=== PATIENT | male | born 1935 | race Caucasian/White ===

== ENCOUNTER 2017-08-20 12:57 | Inpatient (IN) ==
[2017-08-20 13:24] LABS: URINE MICRO REVIEW NEEDED? NO; URINE SOURCE CATH
[2017-08-20 13:30] LABS: BILIRUBIN URINE NEGATIVE (NEGATIVE); BLOOD URINE MODERATE (NEGATIVE); COLOR YELLOW; GLUCOSE URINE NEGATIVE (NEGATIVE); LEUKOCYTES URINE LARGE (NEGATIVE); NITRITE URINE POSITIVE (NEGATIVE); PROTEIN URINE 30 mg/dL (NEGATIVE); SP GRAVITY URINE 1.012; TURBIDITY URINE HAZY (CLEAR); UROBILINOGEN URINE NORMAL (NORMAL)
[2017-08-20 13:33] LABS: UR EPITHELIAL CELLS <10 /HPF (<10); URINE BACTERIA 4+ /HPF; URINE CULTURE NEEDED? YES; URINE WBC TNTC /HPF (<10)
[2017-08-20] MEDS ORDERED: NS 500 ML IV ONE (14:14)
[2017-08-20 14:16] LABS: MANUAL DIFF NEEDED? NO
[2017-08-20] MEDS ORDERED: KEFZOL 1 GM/D5W 1 GM/50 ML IVPB IV ONE (14:16)
[2017-08-20 14:21] LABS: BASO% 0.2 % (0.0-0.8); EOS# 0.02 X1000 (0.0-0.7); EOS% 0.1 % (0.0-10.0); HEMATOCRIT 37.7 % (42.0-52.0); HEMOGLOBIN 12.6 g/dL (14.0-18.0); IMM GRAN# 0.06 X1000 (0.0-0.04); IMM GRAN% 0.4 % (0.0-0.5); LYMPH# 2.96 X1000 (1.2-3.4); LYMPH% 21.3 % (20.5-51.1); MCH 32.4 PG (27-31); MCHC 33.4 g/dL (33-37); MCV 96.9 FL (81-99); MONO# 0.72 X1000 (0.11-0.59); MONO% 5.2 % (1.7-9.3); MPV 10.2 FL (7.4-10.4); NEUT% 72.8 % (42.2-75.2); PLT 223 X1000 (130-400); RBC 3.89 XMIL (4.7-6.1)
[2017-08-20 14:53] LABS: ALBUMIN 2.7 g/dL (3.5-5.0); CALCIUM 8.7 mg/dL (8.8-10.2); POTASSIUM 3.7 mmol/L (3.5-5.1); TOTAL BILIRUBIN 0.59 mg/dL (0.20-1.00); TOTAL PROTEIN 5.8 g/dL (6.3-8.3)
--- NOTE | 2017-08-20 15:57 | PROVIDER DOCUMENTATION ---
This chart was entered by Linwood Montgomery Scribe, acting as scribe for Colleen Garcia CRNP. HPI-Neurological Disorder - General Chief Complaint: UTI Symptoms Stated Complaint: uti/ams/elevated creatine Time Seen by Provider: 08/20/17 13:17 Source: family, EMS, [facility] records Unable to obtain history due to:: altered Allergies/Adverse Reactions: Patient Allergies Allergy/AdvReac Type Severity Reaction Status Date / Time atorvastatin calcium * Allergy Unknown unkown Verified 08/20/17 13:40 [From Lipitor] Home Medications: Home Medication List Medication Instructions Recorded Confirmed Last Taken Type Memantine HCl [Namenda] 5 mg PO BID 11/02/13 08/20/17 08/20/17 09:00 History Clopidogrel Bisulfate [Plavix] 75 mg PO DAILY 11/16/14 08/20/17 08/20/17 09:00 History Divalproex Sodium 125 mg PO DAILY 07/18/17 08/20/17 08/20/17 09:00 History Donepezil [Aricept] 10 mg PO DAILY 07/18/17 08/20/17 08/20/17 09:00 History Mirtazapine [Remeron] 15 mg PO EVERY OTHER DAY 07/18/17 08/20/17 08/18/17 21:00 History Pravastatin Sodium 10 mg PO DAILY 07/18/17 08/20/17 08/20/17 09:00 History Tamsulosin [Flomax] 0.4 mg PO DAILY 07/18/17 08/20/17 08/20/17 09:00 History Amlodipine Besylate 10 mg PO DAILY 08/20/17 08/20/17 08/20/17 09:00 History Aspirin [Aspir-Low] 81 mg PO DAILY 08/20/17 08/20/17 08/20/17 09:00 History Ca Comb No.1/D3/B-6/FA/B12/Av 1 tab PO DAILY 08/20/17 08/20/17 08/20/17 08:00 History [Vitamin D3-Aloe 1,000 Unit Tab] Docusate Sodium 100 mg PO DAILY 08/20/17 08/20/17 08/20/17 09:00 History Ginkgo Biloba [place] Extract [Ginkgo] 60 mg PO DAILY 08/20/17 08/20/17 08/20/17 09 :00 History Glipizide E.r. [Glucotrol Xl] 2.5 mg PO DAILY 08/20/17 08/20/17 08/20/17 06:00 History Hydrochlorothiazide 25 mg PO DAILY 08/20/17 08/20/17 08/20/17 09:00 History Insulin Regular, Human [Humulin R 1 dose SQ DIRECTED 08/20/17 08/20/17 06:00 History U-500] Levothyroxine [Synthroid] 50 mcg PO DAILY 08/20/17 08/20/17 08/20/17 06:00 History Lmfol Ca/Acetyl/Mb12/Algal Oil 1 tab PO DAILY 08/20/17 08/20/17 08/20/17 09:00 History [Metafolbic Plus Rf [place]] Multivitamin with Folic Acid 1 tab PO DAILY 08/20/17 08/20/17 08/20/17 09:00 History [Thera Tablet] Omeprazole 40 mg PO DAILY 08/20/17 08/20/17 08/20/17 06:00 History Potassium Chloride E.r. [Micro-K] 10 meq PO DAILY 08/20/17 08/20/17 08/20/17 09: 00 History - History of Present Illness-Neuro Nature of Presenting Problem: patient is a 81 yo M that presents to the ER with via EMS with AMS and elevated Creatinine level. patient is from local [facility]. Patient is altered and confused. APPARENTLY WAS DX WITH UTI 1 WEEK AGO, FAMILY STS INCREASINGLY ALTERED SINCE THEN. DENIES PAIN. HX OF DEMENTIA, CVA WITH LT SIDED PARALYSIS. Severity: reports: moderate Timing: reports: still present, getting worse Context: denies: head injury, fever Character of Altered Mental Status: reports: confused, decreased responsiveness Any recent trauma/injury?: reports: none Cognitive Baseline: alert but disoriented (dementia) Associated Symptoms: reports: confusion. denies: short of breath, fever/chills , nausea, seizures, vomiting Similar Symptoms Previously?: No Recently seen or treated by another doctor?: No Review of Systems - Adult - REVIEW OF SYSTEMS - ADULT ROS:: ROS per family Constitutional: reports: no symptoms reported. denies: chills, fever Eyes: reports: no symptoms reported Ears, Nose, Mouth & Throat: reports: no symptoms reported Cardiovascular: reports: no symptoms reported. denies: chest pain, palpitations Respiratory: reports: no symptoms reported. denies: cough, shortness of breath Gastrointestinal: reports: no symptoms reported. denies: abdominal pain, diarrhea, nausea, vomiting Genitourinary: reports: no symptoms reported Musculoskeletal: reports: no symptoms reported. denies: back pain, joint pain, joint swelling Integumentary: reports: no symptoms reported. denies: itching, rash Neurological: reports: other (ams). denies: seizure Psychiatric: reports: no symptoms reported Endocrine: reports: no symptoms reported Hematologic/Lymphatic: reports: no symptoms reported Allergic/Immunologic: reports: no symptoms reported All Other Systems: Reviewed and Negative Past History - Adult - PAST MEDICAL HISTORY-ADULT Review of Records: reports: Old Records Reviewed, Nursing Assessment Review, Medications Reviewed Major Childhood Illnesses: reports: denies history Cardiovascular: reports: cardiac disease, HTN, hyperlipidemia Respiratory: reports: sleep apnea Gastrointestinal: reports: GERD Neurological: reports: CVA, dementia, Parkinson's, TIA Psychiatric: reports: depression - PRIOR SURGERIES/PROCEDURES Surgical/Procedure History: reports: CABG, cardiac stent, orthopedic (extremity) - IMMUNIZATION STATUS Childhood Immunizations: See Nurse Assessment Flu Vaccine: See Nurse Assessment - FAMILY HISTORY Family History: reviewed, not pertinent - SOCIAL HISTORY Smoking: quit greater than 1 year, cigarettes Living Situation: care facility Physical Exam- Neurological - Physical Exam-Neuro Initial Vital Signs Reviewed: Yes General Appearance: no apparent distress, slow to respond Eye Exam: bilateral eye: normal inspection, PERRL HENMT: normocephalic/atraumatic. negative: moist mucous membranes (DRY) Head Injury: no evidence of injury Respiratory: chest non-tender, lungs clear, normal breath sounds, no pleuratic chest pain, no respiratory distress, no accessory muscle use. negative: rhonchi , wheezing Cardiovascular: regular rate, rhythm Abdominal Exam: normal bowel sounds, non tender, soft, no organomegaly, no pulsatile mass. 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) Integumentary: normal color, normal turgor, warm/dry Psych/Mental Status: normal mood/affect, disoriented x 3 (ORIENTED TO SELF ONLY) - Glascow Coma Scale Best Eye Response: (4) open spontaneously Best Verbal Response: (4) confused conversation Best Motor Response: (6) obeys commands Total Glascow Score: 14 Progress - PLAN OF CARE/RESULTS Progress/Plan/Lab Results: Vital Signs - 8 hr 08/20/17 13:06 08/20/17 15:30 Temperature 98.4 F Pulse Rate 73 70 Respiratory Rate 16 18 Blood Pressure 140/71 147/71 O2 Sat by Pulse Oximetry 93 L 96 Laboratory Results - last 24 hr 08/20/17 08/20/17 08/20/17 13:14 14:04 14:04 WBC 13.88 H RBC 3.89 L Hgb 12.6 L Hct 37.7 L MCV 96.9 MCH 32.4 H MCHC 33.4 RDW Std Deviation 13.8 Plt Count 223 MPV 10.2 Immature Gran % (Auto) 0.4 Neut % (Auto) 72.8 Lymph % (Auto) 21.3 [place] % (Auto) 5.2 Eos % (Auto) 0.1 Baso % (Auto) 0.2 Immature Gran # (Auto) 0.06 H Neut # (Auto) 10.09 H Lymph # (Auto) 2.96 [place] # (Auto) 0.72 H Eos # (Auto) 0.02 Baso # (Auto) 0.03 Sodium 146 H Potassium 3.7 Chloride 109 H Carbon Dioxide 27 Anion Gap 10 BUN 69 H Creatinine 2.3 H Estimated GFR/1.73 m2 27 BUN/Creatinine Ratio 30 Glucose 162 H Calculated Osmolality 314 Calcium 8.7 L Total Bilirubin 0.59 AST 34 ALT 116 H Alkaline Phosphatase 215 H Total Protein 5.8 L Albumin 2.7 L Globulin 3.1 Albumin/Globulin Ratio 0.9 Urine Source CATH Urine Color YELLOW Urine Turbidity HAZY Urine pH 6.0 Ur Specific [place] 1.012 Urine Protein 30 A Ur Glucose (Stick) NEGATIVE Ur Ketones (Stick) NEGATIVE Urine Blood MODERATE A Urine Nitrite POSITIVE A Urine Bilirubin NEGATIVE Urobilinogen Dipstick NORMAL Urine Leukocytes LARGE A Urine WBC (Auto) TNTC A Urine RBC (Auto) 10-20 A U Epithel Cells (Auto) <10 Urine Bacteria (Auto) 4+ Orders Category Date Time Status Saline Loc NOW Care 08/20/17 13:[address] HEAD W/O CONTRAST [CT] Stat Exams 08/20/17 15:47 Ordered FLAT/UPRIGHT ABD/1 VIEW CHEST [RAD] Stat Exams 08/20/17 15:47 Ordered BLOOD CULTURE [BLDCUL] Stat Lab 08/20/17 14:29 Received CBC WITH ELECTRONIC DIFF [HEME] Stat Lab 08/20/17 14:04 Completed COMPREHENSIVE METABOLIC PANEL [CHEM] Stat Lab 08/20/17 14:04 Completed UA NIMS W/REFLEX CULT [URINALYSIS] Stat Lab 08/20/17 13:14 Completed URINE CULTURE [RM] Routine Lab 08/20/17 14:34 Received 0.9% Sodium Chloride Inj [Ns] 500 ml Med 08/20/17 14:14 Discontinued IV 999 mls/hr Cefazolin 1 gm/D5w [Kefzol 1 gm/D5w] Med 08/20/17 14:16 Discontinued 1 gm in 50 ml IV NOW DISCUSSED PT LABS, EXAM, AND HX WITH DR. DONNELLY WHO AGREES WITH PLAN FOR ADMISSION. Result Diagrams: 08/20/17 14:04 08/20/17 14:04 - CONSULTS/PCP/HOSPITALIST Notification #1 *Consult/PCP/Hospitalist*: JAROCHO COOPER FOR DR. SAMSON Time Discussed: 15:35 Consult Disposition: Admit Departure - Departure Date of Disposition Decision: 08/20/17 Time of Disposition Decision: 15:35 DIAGNOSIS: Urinary tract infection Qualifiers: Urinary tract infection type: site unspecified Hematuria presence: with hematuria Qualified Code(s): N39.0 - Urinary tract infection, site not specified ; R31.9 - Hematuria, unspecified Acute renal failure Qualifiers: Acute renal failure type: unspecified Qualified Code(s): N17.9 - Acute kidney failure, unspecified Disposition: ADMITTED INPATIENT 09 Certified Medical Emergency: Emergent Condition: Good Referrals and Follow-Ups: Fabián Rene MD [Primary Care Provider] - - Critical Care Note This patient required my direct & personal management of CC.: No Attestation - Physician/ GISELLE Attestation Patient care was provided by Advanced Practice Provider:: Yes Advanced Practice Provider:: Colleen Garcia Advanced Practice Provider documentation review:: The Mid-level provider documentation, treatment plan and medical decision making was reviewed by the physician who agrees with all treatment and medical decision making by the MLP. The physician spent face to face time with patient:: No Advanced Practice Provider documentation review:: Supervising physician onsite and consulted in the evaluation and care of this patient. The physician did not have a face to face encounter with the patient. This chart was documented by the indicated scribe, (Linwood Montgomery, Ac) and accurately reflects the services I performed and decisions made by , Colleen Garcia CRNP, as attested by the provider's signature.
[2017-08-20 16:20] LABS: AMYLASE 38 U/L (20-200); LIPASE 23 U/L (13-60)
--- NOTE | 2017-08-20 16:31 | Diag Imaging Result Doc PS360 ---
EXAM: CT HEAD W/O CONTRAST HISTORY: AMS, HX CVA TECHNIQUE: CT brain without contrast. Dose reduction protocol. COMPARISON: 07/18/2017 FINDINGS: No parenchymal hemorrhage. No epidural or subdural hematoma. No subarachnoid hemorrhage. Old bilateral infarcts in the superior parietal lobes which were not present on the prior exam there is also atrophy with chronic microvascular ischemic changes. Small old right thalamic infarct wasn't present previously. No sinus opacification. No air-fluid levels. IMPRESSION: 1.No hemorrhage 2.Atrophy with chronic microvascular ischemic changes 3.Old bilateral infarcts. Two of these superiorly in the parietal lobes were not present on the prior exam. Electronically signed by Anshul Turcios 08/20/2017 4:28 PM
--- NOTE | 2017-08-20 16:33 | Diag Imaging Result Doc PS360 ---
EXAM: FLAT/UPRIGHT ABD/1 VIEW CHEST HISTORY: ELEVATED WBC, ELEVATED LFTS, ADMISSION TECHNIQUE: Upright sitting with flat and upright abdomen, three views COMPARISON: 07/18/2017 FINDINGS: The lungs are well expanded. Sternal wires are present. No cardiomegaly. No pneumonia. No free air beneath the diaphragm. No bowel obstruction. No organomegaly. There are prominent degenerative spine changes. IMPRESSION: No acute abnormality Electronically signed by Anshul Turcios 08/20/2017 4:30 PM
[2017-08-20] MEDS ORDERED: NS 1,000 ML IV SCH (19:03)
[2017-08-20] MEDS ORDERED: ZOFRAN IV PRN (19:03)
[2017-08-20] MEDS ORDERED: ZOSYN 3.375 GM in NS 50 ML IV SCH (20:00)
--- NOTE | 2017-08-20 20:04 | HISTORY AND PHYSICAL ---
HISTORY OF PRESENT ILLNESS: This is an 81-year-old, who was at rehab at [facility] and for the last week he has been not getting out of bed, not eating, not drinking, and his mental status has changed. He is more confused according to the daughter. As far as I know, they have not changed any medications. There is some concern that his sugars apparently were high and he was given insulin and he has never been known to have diabetes. PAST MEDICAL HISTORY: Complex. Best I can tell: 1. Hypertension. 2. Coronary artery disease. 3. Parkinson disease. 4. Dementia. 5. Gastric ulcers. 6. Gastroesophageal reflux disease. 7. Obstructive sleep apnea. 8. CVA in 2012. PAST SURGICAL HISTORY: 1. Status post left endarterectomy in 2011. 2. Coronary artery disease, bypass graft. 3. Right total knee. 4. Right shoulder surgery. About 5 years ago apparently he had a CVA and following that they noticed a real decline in his cognitive ability and confusion and dementia. Then he had another stroke on the 18 of July and that left his left side I believe paralyzed. They did see a little improvement with rehab, but he was sent here to the hospital and felt like possibly could have a urinary tract infection. SOCIAL HISTORY: He was at rehab, but he is and his and family take good care of him. Occasional social alcohol in the past. Does not smoke. No illicit drugs. Has a daughter and a son also very attentive. ALLERGIES: No known drug allergies. MEDICATIONS: We will review. FAMILY HISTORY: I did not elicit. On past medical history did not see any pertinent family history. REVIEW OF SYSTEMS: Constitutional: He has not eaten or drunk much this last week. Seems to be more lethargic. He does not appear to have any focus of pain. He is just less responsive and seems to be more confused. Respiratory: No sign of increased work of breathing or dyspnea. Cardiovascular: Does not show any sign of chest pain. Has not had issues with arrhythmia that they know of. Gastrointestinal/genitourinary: They feel like his bowels have moved okay, but he really has not eaten much this last week No reports of gross hematuria. As far as I know he is voiding okay. Skin: He has a sacral breakdown and apparently they were told it was worse recently and then it broke open today. PHYSICAL EXAMINATION: VITAL SIGNS: Temperature 98.4 degrees, pulse 70, respirations 18, blood pressure 147/71. HEENT: His pupils are equal. CVP is less than 6 cm. NECK: No distended neck veins. LUNGS: Anterolateral are clear. No sign of shortness of breath. CARDIOVASCULAR: Regular rhythm nd rate without murmur or S3. PMI nondisplaced. ABDOMEN: Soft. SKIN: Warm and dry. HEIGHT: 6 feet 3 inches. LAB: White count 35806, hematocrit 37, platelet count 223,000. Sodium 146, potassium 3.7, chloride 109, BUN 69, creatinine 2.3. AST was 116. AST was 34. Alkaline phosphatase was 215. Amylase is 38. Lipase 23. Looking back at his creatinine, it was 1.0 in June. Urinalysis 4+ bacteria. Large amount of too numerous to count white blood cells. Abdominal x-ray no acute abnormality. Head CT, no hemorrhage. Atrophy with chronic microvascular ischemic changes. Old bilateral infarcts. Two of these superior in the parietal lobes, not present on prior exam. ASSESSMENT AND PLAN: 1. Altered mental status. Difficult. Family feels like it is a change from his baseline. He has underlying dementia. He has had at least 2 documented CVAs. I think his is concerned that he is having more little strokes, she called them TMI's, but I think she meant TIA's, and we are going to treat for a urinary tract infection. He does have too numerous to count white blood cells and 4+ bacteria in a man and I think that is significant. We will give him Rocephin 1 g daily. Give 1 dose now. 2. Urinary tract infection. As above, treat with ceftriaxone. 3. History of cerebrovascular accidents. I am not sure if we probably ought to look at his carotids if that has not been done. I am sure he has had an echocardiogram. He did have carotid Doppler's back in November 2015 and he is status post carotid endarterectomy, I believe. 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 The right side grossly unchanged, still noted to be 0-39%. I do not think we need to repeat that. He had an echocardiogram, I think. Looking back, though, that may be worth documenting his left ventricular function. cc: Tom Glover MD
[2017-08-20] MEDS: 1/2 NS 1,000 ML IV SCH (20:46)
[2017-08-20] MEDS: ROCEPHIN 1 GM in NS 50 ML IV SCH (20:46)
[2017-08-20] MEDS: TYLENOL PO PRN (20:47)
[2017-08-20] MEDS ORDERED: PRILOSEC PO SCH (21:00)
[2017-08-20] MEDS ORDERED: NAMENDA PO SCH (21:00)
[2017-08-20] MEDS: HUMULIN R SUBQ SCH (21:12)
[2017-08-21] MEDS: HUMULIN R SUBQ SCH ×4 (06:15→20:18)
[2017-08-21 06:36] LABS: MANUAL DIFF NEEDED? NO
--- NOTE | 2017-08-21 06:45 | EKG Report ---
Test Performed on : 08/21/2017 05:52:46 AM Test Reason : chest pain Blood Pressure : / mmHG Vent. Rate : 080 BPM Atrial Rate : 080 BPM P-R Int : 176 ms QRS Dur : 080 ms QT Int : 380 ms P-R-T Axes : 073 -27 -08 degrees QTc Int : 438 ms Sinus rhythm. with premature atrial complexes. with aberrant conduction. Low voltage QRS Possible Inferior infarct (cited on or before 27-NOV-2015) Cannot rule out Anterior infarct (cited on or before 18-JUL-2017) Abnormal ECG When compared with ECG of July 18, 2017- No significant change was found Confirmed by Del Oscar MD ([id number]) on 08/23/2017 12:59:43 PM
[2017-08-21 06:56] LABS: INR 1.1; PROTIME 11.6 Seconds (9.2-11.7); PTT 24.8 Seconds (22.0-36.0)
[2017-08-21 07:00] LABS: BASO% 0.2 % (0.0-0.8); EOS# 0.05 X1000 (0.0-0.7); EOS% 0.4 % (0.0-10.0); HEMATOCRIT 39.5 % (42.0-52.0); HEMOGLOBIN 12.9 g/dL (14.0-18.0); IMM GRAN# 0.03 X1000 (0.0-0.04); IMM GRAN% 0.2 % (0.0-0.5); LYMPH# 2.82 X1000 (1.2-3.4); LYMPH% 22.6 % (20.5-51.1); MCH 32.3 PG (27-31); MCHC 32.7 g/dL (33-37); MCV 98.8 FL (81-99); MONO# 0.62 X1000 (0.11-0.59); MPV 10.4 FL (7.4-10.4); NEUT% 71.6 % (42.2-75.2); PLT 243 X1000 (130-400)
[2017-08-21 07:24] LABS: CALCIUM 8.8 mg/dL (8.8-10.2); MAGNESIUM 2.2 mg/dL (1.5-2.7); POTASSIUM 4.1 mmol/L (3.5-5.1); TOTAL BILIRUBIN 0.62 mg/dL (0.20-1.00); TOTAL PROTEIN 5.6 g/dL (6.3-8.3)
[2017-08-21 07:32] LABS: FREE T4 1.24 ng/dL (0.93-1.70)
[2017-08-21] MEDS ORDERED: ARICEPT PO SCH (09:00)
[2017-08-21] MEDS ORDERED: VITAMIN D PO SCH (09:00)
--- NOTE | 2017-08-21 09:27 | PROGRESS NOTE ---
DATE: 08/21/2017 SUBJECTIVE: He had some confusion last night. Nurse reported that it was consistent with ing. This morning, he seems to be more alert and awake. He denies hurting anywhere. His mouth appears dry. Remains afebrile. PHYSICAL EXAMINATION: Vital Signs: Temperature 97.4 degrees, pulse 72, respirations 22, blood pressure 152/68. Lungs: Are clear anterolateral. Cardiovascular Examination: Regular rhythm and rate without murmur or S3. Abdomen: Soft. Skin: Is warm and dry. HEENT: Mucous membranes dry as mentioned. Neck: No distended neck veins. LABORATORY: Review of lab from yesterday, borderline elevation of white count at 12,460. Note that his sodium has gone up to 156, potassium 4.1, chloride 115, BUN 62, creatinine 2.1. ASSESSMENT AND PLAN: 1. Altered mental status, metabolic encephalopathy. He does have underlying urinary tract infection. Continue present antibiotics and continue to give him fluid. 2. Acute on chronic renal injury. Going to continue fluids and watch his creatinine. 3. Polypharmacy. He does have a history of 2 cerebrovascular accidents and underlying dementia but I really think we need to try and trim down some these medications and take him off of things that he does not absolutely have to have or not clear about it benefit. His fluids right now are at 85 mL an hour of normal saline. We will continue that. Did notice that the sodium went up a little bit. cc: Tom Glover MD
[2017-08-21] MEDS: PLAVIX PO SCH (09:38)
[2017-08-21] MEDS: DEPAKOTE SPRINKLE PO SCH (09:38)
[2017-08-21] MEDS: ASPIRIN EC PO SCH (09:38)
[2017-08-21] MEDS: SYNTHROID PO SCH (09:39)
[2017-08-21] MEDS: COLACE PO SCH (09:40)
[2017-08-21] MEDS: FLOMAX PO SCH (09:40)
[2017-08-21] MEDS: THERA M PLUS PO SCH (09:41)
[2017-08-21] MEDS: VITAMIN D PO SCH (09:45)
[2017-08-21] MEDS: 1/2 NS 1,000 ML IV SCH ×2 (10:45→22:48)
[2017-08-21] MEDS: PATIENT'S OWN MED PO SCH ×2 (10:49)
[2017-08-21 11:20] LABS: HEPATITIS PROFILE ACUTE SEE COMMENTS
[2017-08-21] MEDS: TYLENOL PO PRN (20:17)
[2017-08-21] MEDS: ROCEPHIN 1 GM in NS 50 ML IV SCH (20:18)
[2017-08-22] MEDS: TYLENOL PO PRN (04:17)
[2017-08-22] MEDS: HUMULIN R SUBQ SCH ×4 (06:04→20:49)
[2017-08-22] MEDS ORDERED: REMERON PO SCH (09:00)
[2017-08-22] MEDS: FLOMAX PO SCH (09:50)
[2017-08-22] MEDS: COLACE PO SCH (09:50)
[2017-08-22] MEDS: ASPIRIN EC PO SCH (09:50)
[2017-08-22] MEDS: PLAVIX PO SCH (09:50)
[2017-08-22] MEDS: THERA M PLUS PO SCH (09:50)
[2017-08-22] MEDS: SYNTHROID PO SCH (09:50)
[2017-08-22] MEDS: DEPAKOTE SPRINKLE PO SCH (09:50)
[2017-08-22] MEDS: VITAMIN D PO SCH (09:51)
[2017-08-22] MEDS: PATIENT'S OWN MED PO SCH ×2 (09:52→09:53)
--- NOTE | 2017-08-22 09:59 | PROGRESS NOTE ---
DATE: 08/22/2017 SUBJECTIVE: He looks better. His feels like he looks better. He is more alert. He appears comfortable. He responded to questions. He does complain of hurting in his back when I asked if he was hurting. OBJECTIVE: Temperature 97.8 degrees, pulse 74, respirations 16. Lungs are clear in all lung lozada. Cardiovascular: Regular rhythm and rate without murmur or S3. Abdomen is soft. Skin is warm and dry. He has a sacral decubitus which was provided topical care. Urine output was close to 2400. REVIEW OF LABORATORY DATA: From yesterday, hematocrit stable at 39. Sequential blood sugar is 169, 151, 184, 146. ASSESSMENT AND PLAN: 1. Altered mental status. Metabolic encephalopathy. I think it is multifactorial or underlying dementia. He has had 2 recent cerebrovascular accidents. We have cut down on some medications to see if it would help. I did stop his Aricept and his Namenda, a note that is indicated for moderate dementia to keep it from progressing, and the family really cannot tell if that has any benefit. 2. Lhhoy-qu-ymfmtia renal injury. Continue fluids. Seems to be improving. 3. Polypharmacy, which we are addressing. 4. Urinary tract infection. 5. Sacral decubitus. Continue topical care. > work on getting him out of bed and work on his strength. Right now, he is on ceftriaxone 1 g daily. On looking over his orders, I do not see any change. He does have a history of hypothyroidism. He is on Synthroid 50 mcg daily. cc: Tom Glover MD
[2017-08-22] MEDS: ROCEPHIN 1 GM in NS 50 ML IV SCH (19:54)
[2017-08-23] MEDS: HUMULIN R SUBQ SCH ×4 (06:28→20:06)
--- NOTE | 2017-08-23 09:46 | PROGRESS NOTE ---
DATE: 08/23/2017 SUBJECTIVE: He is doing better. He is awake. He is comfortable. He denies any pain. OBJECTIVE: Temp 97.8 degrees, pulse 70, respirations 15, blood pressure 147/74. HEENT: Pupils are equal. CVP less than 6 cm. Lungs: Clear in all lung lozada. Cardiovascular: Regular rhythm and rate without murmur or S3. Blood sugar 146, 169, and 159. ASSESSMENT AND PLAN: 1. Altered mental status, metabolic encephalopathy, multifactorial. 2. Underlying dementia. 3. Two recent cerebrovascular accidents. 4. Polypharmacy. He seems to be doing better with diminishing his medication. 5. Odqip-vm-ibannxk renal failure. Renal function seems to be improving. Creatinine we will recheck. Check the lab again in the morning, but his creatinine was 2.1 on 08/01. Electrolytes look pretty good. 6. Deconditioning and weakness. Continue physical therapy. 7. Urinary tract infection. 8. Sacral decubitus. Continue topical care. This seems to be improving. 9. Review of his orders. I do not know that I see any change at this point. He is on aspirin 81 mg a day, Plavix 75 mg a day, Depakote 125 mg a day, Colace 100 mg a day, Synthroid 50 mcg daily, multivitamin 1 a day, Flomax 0.4 mg a day. 10. Benign prostatic hypertrophy. He does not have a Hernandez catheter in. 11. He does have oxygen on and we will see about weaning that as well. 12. Continue physical therapy. 13. Maybe we can get him out of the hospital the week, Friday or Friday. cc: Tom Glover MD
[2017-08-23] MEDS: FLOMAX PO SCH (10:37)
[2017-08-23] MEDS: SYNTHROID PO SCH (10:37)
[2017-08-23] MEDS: ASPIRIN EC PO SCH (10:37)
[2017-08-23] MEDS: PLAVIX PO SCH (10:37)
[2017-08-23] MEDS: VITAMIN D PO SCH (10:37)
[2017-08-23] MEDS: THERA M PLUS PO SCH ×2 (10:38→10:46)
[2017-08-23] MEDS: COLACE PO SCH (10:38)
[2017-08-23] MEDS: PATIENT'S OWN MED PO SCH ×2 (10:38)
[2017-08-23] MEDS: DEPAKOTE SPRINKLE PO SCH (10:38)
[2017-08-23] MEDS: ROCEPHIN 1 GM in NS 50 ML IV SCH (20:35)
[2017-08-23] MEDS: TYLENOL PO PRN (20:35)
[2017-08-24] MEDS: HUMULIN R SUBQ SCH ×4 (06:15→20:05)
[2017-08-24 06:16] LABS: MANUAL DIFF NEEDED? NO
[2017-08-24 06:19] LABS: BASO% 0.3 % (0.0-0.8); EOS# 0.11 X1000 (0.0-0.7); EOS% 1.2 % (0.0-10.0); HEMATOCRIT 38.3 % (42.0-52.0); HEMOGLOBIN 12.3 g/dL (14.0-18.0); IMM GRAN# 0.02 X1000 (0.0-0.04); IMM GRAN% 0.2 % (0.0-0.5); LYMPH# 3.25 X1000 (1.2-3.4); LYMPH% 35.3 % (20.5-51.1); MCH 32.4 PG (27-31); MCHC 32.1 g/dL (33-37); MCV 100.8 FL (81-99); MONO# 0.45 X1000 (0.11-0.59); MONO% 4.9 % (1.7-9.3); MPV 10.1 FL (7.4-10.4); NEUT% 58.1 % (42.2-75.2); PLT 270 X1000 (130-400)
[2017-08-24 06:45] LABS: ALBUMIN 3.1 g/dL (3.5-5.0); CALCIUM 9.1 mg/dL (8.8-10.2); MAGNESIUM 2.1 mg/dL (1.5-2.7); POTASSIUM 4.1 mmol/L (3.5-5.1); TOTAL BILIRUBIN 0.58 mg/dL (0.20-1.00); TOTAL PROTEIN 6.2 g/dL (6.3-8.3)
[2017-08-24] MEDS: FLOMAX PO SCH (08:21)
[2017-08-24] MEDS: PLAVIX PO SCH (08:21)
[2017-08-24] MEDS: COLACE PO SCH (08:22)
[2017-08-24] MEDS: DEPAKOTE SPRINKLE PO SCH (08:22)
[2017-08-24] MEDS: VITAMIN D PO SCH (08:22)
[2017-08-24] MEDS: SYNTHROID PO SCH (08:22)
[2017-08-24] MEDS: THERA M PLUS PO SCH (08:22)
[2017-08-24] MEDS: ASPIRIN EC PO SCH (08:22)
[2017-08-24] MEDS: PATIENT'S OWN MED PO SCH ×2 (12:53)
--- NOTE | 2017-08-24 13:14 | PROGRESS NOTE ---
DATE: 08/24/2017 SUBJECTIVE: He has a little sleepy this morning but is comfortable, had a good night by the report. He ate pretty good yesterday. He has no Hernandez catheter in place. OBJECTIVE: Vital Signs: Temperature 98.9 degrees, pulse 80, respirations 12, blood pressure 136/74. HEENT: Pupils are equal, round. Lungs: Clear in all lung lozada. Cardiovascular: Regular rhythm and rate without murmur or S3. Abdomen: Soft. Skin: Warm and dry. LABORATORY STUDIES: Blood sugars sequential 133, 138, and 136. Lab reviewed from this morning. White count 9210 which has come down from 13,000 when he came in, hematocrit 38, platelet count 270,000. Chemistry: Sodium was up to 160, potassium 4.1, chloride 120, bicarb 29, BUN 46, creatinine 1.5. Albumin was 3.1. ASSESSMENT AND PLAN: 1. Altered mental status, metabolic encephalopathy with multifactorial. I think medications, little dehydrated, treating for urinary tract infection. 2. Underlying dementia. 3. History of cerebrovascular accidents, 2 of them and 1 recently this year. 4. Polypharmacy. We have whittled down on his medicines. 5. Acute on chronic renal failure. Creatinine was 2.1 on 08/01/2017. The creatinine is down to 1.5. 6. Hypernatremia. I think we need to give him some free water, not to change his IV, give him free water and follow up tomorrow. 7. Urinary tract infection, treating. 8. Sacral decubitus. Continue topical treatment. 9. Benign prostatic hypertrophy. Looking over his orders, I do not see much change. Hopefully we can continue physical therapy, maybe get him up out of bed and pursue trying to go home or snf placement depending on how we are doing. cc: Tom Glover MD
[2017-08-24] MEDS: 1/2 NS 1,000 ML IV SCH (14:28)
[2017-08-24] MEDS: TYLENOL PO PRN (17:08)
[2017-08-24] MEDS: ROCEPHIN 1 GM in NS 50 ML IV SCH (20:00)
[2017-08-25] MEDS: 1/2 NS 1,000 ML IV SCH ×2 (03:28→14:49)
[2017-08-25] MEDS: HUMULIN R SUBQ SCH ×4 (06:13→21:59)
[2017-08-25 06:26] LABS: CALCIUM 8.8 mg/dL (8.8-10.2); POTASSIUM 4.3 mmol/L (3.5-5.1)
[2017-08-25] MEDS: PLAVIX PO SCH (10:33)
[2017-08-25] MEDS: ASPIRIN EC PO SCH (10:33)
[2017-08-25] MEDS: PATIENT'S OWN MED PO SCH ×3 (10:33→10:45)
[2017-08-25] MEDS: FLOMAX PO SCH ×2 (10:33→21:54)
[2017-08-25] MEDS: COLACE PO SCH (10:33)
[2017-08-25] MEDS: THERA M PLUS PO SCH (10:33)
[2017-08-25] MEDS: VITAMIN D PO SCH (10:33)
[2017-08-25] MEDS: SYNTHROID PO SCH ×2 (10:33→10:45)
--- NOTE | 2017-08-25 15:11 | PROGRESS NOTE ---
DATE: 08/25/2017 SUBJECTIVE: His thinks he is doing great. He had a good night. He is more comfortable. See if we can try and get him up, sit him up in a chair and get him up out of bed. His Hernandez catheter is out. OBJECTIVE: Vital Signs: Temp 97.8 degrees, pulse 76, respirations 16, blood pressure 161/85. Neck: No distended neck veins. Respiratory: Lungs are clear anterolateral. Cardiovascular: Regular rate and rhythm without murmur or S3. PMI nondisplaced. Abdomen: Soft. Extremities: No pedal edema. Urine output: Looks like it was over 1000 yesterday. LABS: Reviewed from yesterday. Hematocrit stable at 38. Electrolytes from yesterday note his sodium has gone up a little bit. I gave him a little more fluid. Creatinine is 1.5, it was 2.1 on 08/21, so we are headed in the right direction. ASSESSMENT AND PLAN: 1. Altered mental status and metabolic encephalopathy I think is multifactorial. We will greatly reduce his medication I think from polypharmacy. He has improved quite a bit according to family. 2. Underlying dementia. Aware. 3. History of cerebrovascular accident, one recently and then a distant one before that, so he has had 2. 4. Polypharmacy. 5. Acute on chronic renal injury and creatinine is improving. 6. Hyponatremia. I increased his fluids and free water, and seems to be doing better. 7. Urinary tract infection was treated. 8. Sacral decubitus. Continue topical treatment. Continue to shift his weight. Improve his nutrition. 9. Benign prostatic hypertrophy. Aware. We would like to get him back to [facility] so we will set our sites on maybe going tomorrow. We will discuss with social security assessor and see if we can get things set up. cc: Tom Glovre MD
[2017-08-25] MEDS: ROCEPHIN 1 GM in NS 50 ML IV SCH (21:54)
[2017-08-26] MEDS: HUMULIN R SUBQ SCH ×4 (06:40→21:05)
[2017-08-26] MEDS: ASPIRIN EC PO SCH (08:33)
[2017-08-26] MEDS: COLACE PO SCH (08:33)
[2017-08-26] MEDS: THERA M PLUS PO SCH (08:33)
[2017-08-26] MEDS: VITAMIN D PO SCH (08:33)
[2017-08-26] MEDS: PLAVIX PO SCH (08:34)
[2017-08-26] MEDS: PATIENT'S OWN MED PO SCH ×2 (08:37)
[2017-08-26] MEDS: 1/2 NS 1,000 ML IV SCH ×2 (08:49)
[2017-08-26 08:57] LABS: MANUAL DIFF NEEDED? NO
[2017-08-26 09:08] LABS: BASO% 0.4 % (0.0-0.8); EOS# 0.08 X1000 (0.0-0.7); HEMATOCRIT 36.3 % (42.0-52.0); HEMOGLOBIN 11.7 g/dL (14.0-18.0); LYMPH# 2.94 X1000 (1.2-3.4); MCH 32.4 PG (27-31); MCHC 32.2 g/dL (33-37); MCV 100.6 FL (81-99); MONO# 0.31 X1000 (0.11-0.59); MPV 9.8 FL (7.4-10.4); NEUT% 56.6 % (42.2-75.2); PLT 230 X1000 (130-400); RBC 3.61 XMIL (4.7-6.1)
[2017-08-26 09:40] LABS: CALCIUM 8.8 mg/dL (8.8-10.2); POTASSIUM 4.7 mmol/L (3.5-5.1)
--- NOTE | 2017-08-26 16:33 | PROGRESS NOTE ---
DATE: 08/26/2017 SUBJECTIVE: When I evaluated this patient, this patient was sleepy. It was really hard to wake him up. Physical therapy on board and, apparently, they sit this patient up for about 3 minutes or so. All this information was provided by his . She thinks that he is doing fine. His blood sodium is still elevated at 154. I will switch the half NS to D5W at 100 mL/h. OBJECTIVE: Vital Signs: Temperature 98.1 degrees, pulse 65, respiratory rate 18, blood pressure 142/67, oxygen saturation 95% on room air. HEENT: Head normocephalic. No trauma. PERRLA. Neck: Supple. No JVD. No masses. Central trachea. Chest: Clear to auscultation. No wheezing. No rales. Abdomen: Soft, nontender, nondistended. No hepatosplenomegaly. Extremities: Trace edema. No clubbing. No cyanosis. Neurological: The patient is sleepy. I could not wake him up. As per the , he wakes up on and off. I am not quite sure if this is secondary to medications. LABORATORY: WBC 7.7, hemoglobin 11.7, hematocrit 36.3, platelet 230,000. Sodium 154, potassium 4.7, chloride 116, bicarbonate 28, BUN 32, creatinine 1.4, glucose 141, calcium 8.8. ASSESSMENT AND PLAN: 1. Altered mental status and metabolic encephalopathy, probably multifactorial. He has a urinary tract infection and he has been taking too much medication. Dr. Glover already removed some of then. We will continue to monitor. This patient also has hypernatremia. 2. Underlying dementia. Aware. 3. History of cerebrovascular accident, apparently x2, with left-sided weakness. 4. Polypharmacy. Aware. 5. Hypernatremia. I will switch the half NS for D5W. We will continue to monitor. 6. [id number] kidney injury. This is getting better. Continue to monitor. 7. Urinary tract infection. The patient is receiving ceftriaxone. Urine culture showed Escherichia coli, sensitive to cephalosporin. 8. Sacral decubitus. Continue with topical treatment. Continue to shift his weight. 9. BPH. Aware. DISPOSITION: This patient is from [facility]. Once this patient's blood sodium and mental status are a little bit better, I will send him over there. cc: Nicholas Love MD
[2017-08-26] MEDS: D5W 1,000 ML IV SCH (16:53)
[2017-08-26] MEDS: ROCEPHIN 1 GM in NS 50 ML IV SCH (20:42)
[2017-08-26] MEDS: FLOMAX PO SCH (20:42)
[2017-08-27 05:29] LABS: MANUAL DIFF NEEDED? NO
[2017-08-27 05:34] LABS: BASO% 0.4 % (0.0-0.8); EOS# 0.11 X1000 (0.0-0.7); EOS% 1.4 % (0.0-10.0); HEMATOCRIT 32.4 % (42.0-52.0); HEMOGLOBIN 10.5 g/dL (14.0-18.0); LYMPH# 2.92 X1000 (1.2-3.4); LYMPH% 37.8 % (20.5-51.1); MCH 32.2 PG (27-31); MCHC 32.4 g/dL (33-37); MCV 99.4 FL (81-99); MONO# 0.34 X1000 (0.11-0.59); MONO% 4.4 % (1.7-9.3); MPV 9.4 FL (7.4-10.4); PLT 215 X1000 (130-400); RBC 3.26 XMIL (4.7-6.1)
[2017-08-27] MEDS: D5W 1,000 ML IV SCH ×2 (05:57→13:58)
[2017-08-27 06:02] LABS: CALCIUM 8.7 mg/dL (8.8-10.2)
[2017-08-27] MEDS: HUMULIN R SUBQ SCH ×4 (06:35→20:47)
[2017-08-27] MEDS: THERA M PLUS PO SCH (09:00)
[2017-08-27] MEDS: COLACE PO SCH (09:00)
[2017-08-27] MEDS: PLAVIX PO SCH (09:00)
[2017-08-27] MEDS: VITAMIN D PO SCH (09:00)
[2017-08-27] MEDS: ASPIRIN EC PO SCH (09:00)
[2017-08-27] MEDS: PATIENT'S OWN MED PO SCH ×2 (09:01)
--- NOTE | 2017-08-27 16:05 | PROGRESS NOTE ---
DATE: 08/27/2017 SUBJECTIVE: This patient looks better today. He is more awake. He is answering some of my questions. He is following commands. He has left-sided hemiparesis, and his right side is extremely weak. As per the , he is weaker than usual but his baseline is close to this. The is at the bedside, and he has been tolerating his food. I have changed his diet to a soft GI diet, his blood sodium was better; decreased from 154 to 146. I will continue with D5W and I will continue to monitor the blood sodium. His kidney function is much better, almost normal. Will continue to monitor. OBJECTIVE: Vital Signs: Temperature 98.1 degrees, pulse 64, respiratory rate 16, blood pressure 145/72, oxygen saturation 99% on 2 L of nasal cannula. HEENT: Head normocephalic. No trauma. PERRLA. Neck supple. No JVD. No masses. Central trachea. Chest: Clear to auscultation. No wheezing. No rales. Abdomen soft. Nontender and nondistended. No hepatosplenomegaly. Extremities: Trace edema. No clubbing. No cyanosis. Neurologic: The patient is awake. He is oriented to main. I cannot understand some of his words. at the bedside and she states that this is close to his baseline but he looks more weaker than normal. LABORATORY: WBC 7.7, hemoglobin 10.5, hematocrit 32.4, platelets 215,000. Sodium 146, potassium 4, chloride 111, bicarbonate 27. BUN 26, creatinine 1.2, glucose 162 calcium 8.7. ASSESSMENT AND PLAN: 1. Altered mental status/metabolic encephalopathy, probably multifactorial. He has urinary tract infection and also he has been taking a lot of medicines, so we thought at the beginning that one of the causes can be polypharmacy. Also, this patient presented with hyponatremia that now is better. As per the , he looks close to his baseline but only much weaker. 2. Underlying dementia, aware. 3. History of cerebrovascular accident x2 with left-sided hemiparesis, aware. 4. Polypharmacy, aware. 5. Hypernatremia. continue with the same management. The blood sodium is much better today. 6. Cypsd-[id number]-dakcsme kidney injury. This is getting much better. Probably this is his baseline. 7. Urinary tract infection. This patient is getting ceftriaxone. Urine culture showed Escherichia coli that is sensitive to cephalosporin. 8. Sacral ulcer. Continue with topical treatment. Continue achieve his weight. 9. Benign prostatic hypertrophy, aware. DISPOSITION: This patient is from [facility]. He looks much better. Probably, I will send him back to this place tomorrow if everything is okay. cc: Nicholas Love MD
[2017-08-27] MEDS: ROCEPHIN 1 GM in NS 50 ML IV SCH (20:46)
[2017-08-27] MEDS: FLOMAX PO SCH (20:46)
[2017-08-28] MEDS: D5W 1,000 ML IV SCH (00:33)
[2017-08-28 06:14] LABS: MANUAL DIFF NEEDED? NO
[2017-08-28 06:19] LABS: BASO% 0.3 % (0.0-0.8); EOS# 0.11 X1000 (0.0-0.7); EOS% 1.5 % (0.0-10.0); HEMATOCRIT 32.2 % (42.0-52.0); HEMOGLOBIN 10.5 g/dL (14.0-18.0); IMM GRAN# 0.02 X1000 (0.0-0.04); IMM GRAN% 0.3 % (0.0-0.5); LYMPH# 2.68 X1000 (1.2-3.4); LYMPH% 36.4 % (20.5-51.1); MCH 31.8 PG (27-31); MCHC 32.6 g/dL (33-37); MCV 97.6 FL (81-99); MONO# 0.43 X1000 (0.11-0.59); MONO% 5.8 % (1.7-9.3); MPV 9.8 FL (7.4-10.4); NEUT% 55.7 % (42.2-75.2); PLT 204 X1000 (130-400)
[2017-08-28] MEDS: HUMULIN R SUBQ SCH ×2 (06:49→12:42)
[2017-08-28 06:59] LABS: CALCIUM 8.5 mg/dL (8.8-10.2); POTASSIUM 4.6 mmol/L (3.5-5.1)
[2017-08-28] MEDS ORDERED: 1/2 NS 1,000 ML IV SCH (07:35)
[2017-08-28] MEDS ORDERED: DULCOLAX PR ONE (07:36)
[2017-08-28] MEDS ORDERED: MIRALAX PO SCH (09:00)
[2017-08-28] MEDS: PLAVIX PO SCH (09:57)
[2017-08-28] MEDS: ASPIRIN EC PO SCH (09:57)
[2017-08-28] MEDS: VITAMIN D PO SCH (09:57)
[2017-08-28] MEDS: PATIENT'S OWN MED PO SCH ×2 (09:57→11:40)
[2017-08-28] MEDS: THERA M PLUS PO SCH (09:57)
[2017-08-28] MEDS: COLACE PO SCH (09:57)
--- NOTE | 2017-08-28 11:46 | DISCHARGE SUMMARY ---
ADMISSION DATE: 08/20/2017 DISCHARGE DATE: 08/28/2017 CONSULTATIONS: None. PERTINENT PROCEDURES: 1. Head CT showed no hemorrhage, atrophy but chronic microvascular ischemic changes, old bilateral infarcts, 2 of these are superiorly in the parietal lobes, were not present on the prior exam. 2. Abdominal x-ray showed no acute abnormality. DISCHARGE DIAGNOSES: 1. Altered mental status and metabolic encephalopathy, multifactorial. Secondary to urinary tract infection as well as polypharmacy and hypernatremia, all resolved. 2. Underlying dementia, aware. 3. Cerebrovascular accident x2 with left-sided hemiparesis, aware. 4. Polypharmacy, aware. 5. Hypernatremia, improving. 6. Acute on chronic kidney injury, improving. 7. Urinary tract infection secondary to Escherichia coli. The patient has been receiving IV antibiotics. We will continue with Keflex p.o. 8. Sacral ulcer. Continue with topical treatment, and turn every 2 hours. 9. Benign prostatic hypertrophy, aware. HOSPITAL COURSE: Briefly, Mr. Radford is an 81-year-old male who carries a past medical history of hypertension, coronary artery disease, Parkinson disease, dementia, gastric ulcers, GERD, obstructive sleep apnea, CVA x2 with left-sided hemiparesis. He has been at rehab at [facility] for 1 week. He had not been getting out of bed, not eating, not drinking. His mental status had changed. He was more confused according to the daughter. He had no medications changed. There was concern that his blood sugars had been high. He was given insulin when he was not a known diabetic. White count was 13, hematocrit 37, platelet count 223,000. Sodium was 146, potassium 3.7, BUN 69, creatinine was 2.3. His last creatinine back in June was 1.0. Urinalysis showed 4+ bacteria, large amount of too numerous to count WBCs. Abdominal x-ray did not show anything acute. Head CT showed no hemorrhage. Atrophy with chronic microvascular ischemic changes as well as old bilateral infarcts. He was admitted for metabolic encephalopathy secondary to urinary tract infection, started on IV antibiotics as well as IV fluid. Given his polypharmacy they did try to trim him down on a lot of his medications that they felt were contributing to some of his altered mental status as well. Physical therapy was consulted and started getting the patient up out of bed. Clinically and neurologically Mr. Radford is improving. Per his family, he is closer to his baseline. However, he still continues to be weak. His hypernatremia is improving. His acute kidney injury is improving. He has received IV antibiotics for his UTI. He has been transitioned to p.o. We were treating his sacral ulcer with topical treatment. He has been getting around with physical therapy. He will need to stay hydrated with free water. He will be discharged back to [facility] today. VITAL SIGNS: Temperature is 97.9 degrees, heart rate 64, respirations 20, blood pressure 147/67, O2 is 99% on 2 L nasal cannula. DISCHARGE DIET: GI soft with Glucerna shakes with each meal. DISCHARGE MEDICATIONS: As per Dr. Ingram. 1. Aspirin 81 mg p.o. daily. 2. 1 tablet p.o. daily. 3. Keflex 500 mg p.o. q.12 hours. 4. Plavix 75 mg p.o. daily. 5. Colace 100 mg p.o. daily. 6. Aricept 10 mg p.o. daily. 7. 1 tablet p.o. daily. 8. Namenda 5 mg p.o. b.i.d. 9. Multivitamin with folic acid 400 mcg tablet p.o. daily. 10. Prilosec 40 mg p.o. daily. 11. MiraLAX 17 g p.o. b.i.d. p.r.n. 12. Pravastatin 10 mg p.o. daily. 13. Flomax 0.4 mg p.o. at bedtime. FOLLOWUP: Mr. Radford is being discharged back to [facility]. He again will need to be hydrated with free water and will need to continue with physical therapy. Finish all his antibiotics as prescribed. He can follow up with his PCP, Dr. Fabián Rene. He can return to the ED for any worsening of symptoms. DISCHARGE TIME: 30 minutes. Dictated by JEFF Pastor for Nicholas Love MD cc: MD Nicholas Alfredo MD [facility]
[2017-08-28 12:35] VITALS: BP 117/69
[2017-08-28] MEDS: TYLENOL PO PRN (12:42)
[2017-08-28] MEDS ORDERED: KEFLEX PO SCH (21:00)
== END 2017-08-28 15:10 ==
LOC: ED 12:57 → 4N 16:35 → SUATTDRO 16:35
PROVIDERS: ATTEND Internal Medicine